=== PATIENT | female | born 1980 | race Caucasian/White ===

== ENCOUNTER 2016-11-12 04:46 | Inpatient (IN) | payer BC ==
[2016-11-12] MEDS ORDERED: VITAMIN C500 M2 CHEW (11:48)
[2016-11-12] MEDS ORDERED: IRON325 M1 PO (11:49)
[2016-11-12] MEDS ORDERED: PRENATAL PLUS I1 TAB PO (11:50)
[2016-11-12] MEDS ORDERED: [UNRECOGNIZED DRUG - OTHER] (11:50)
[2016-11-12] MEDS ORDERED: ASPIRIN81 MG PO (11:52)
[2016-11-13] MEDS ORDERED: MOTRIN800 MG PO (07:59)
[2016-11-13] MEDS ORDERED: LAN-O-SOOTHE7 GM TOP (08:00)
[2016-11-13] MEDS ORDERED: ULTRAM50 MG PO (08:01)
== END 2016-11-13 08:42 | disposition short-term general hospital (02) | DRG 775 ==
LOC: LDRIP 04:46
PROVIDERS: ADMIT Family Medicine
PROC: 10E0XZZ Delivery of Products of Conception, External Approach (ICD-10-PCS; principal; 2016-11-12)
DX: O42.02 Full-term premature rupture of membranes, onset of labor within 24 hours of rupture (principal); O62.3 Precipitate labor; O99.334 Smoking (tobacco) complicating childbirth; F17.210 Nicotine dependence, cigarettes, uncomplicated; Z3A.37 37 weeks gestation of pregnancy; Z37.0 Single live birth; O09.523 Supervision of elderly multigravida, third trimester; O70.0 First degree perineal laceration during delivery
CPT/HCPCS: G0477; J0290; J2590

== ENCOUNTER → 2016-12-24 | Outpatient (CLI) | payer BC ==
[~2016-12-24] MED LIST: ASPIRIN81 MG PO; IRON325 M1 PO; LAN-O-SOOTHE7 GM TOP; MOTRIN800 MG PO; PRENATAL PLUS I1 TAB PO; ULTRAM50 MG PO; VITAMIN C500 M2 CHEW; [UNRECOGNIZED DRUG - OTHER]
== END | disposition short-term general hospital (02) ==
LOC: CLOBGYN 09:13
DX: Z39.2 Encounter for routine postpartum follow-up (principal)